=== PATIENT | male | born 1945 | race Caucasian/White ===

== ENCOUNTER 2022-02-24 14:09 | Emergency (ER) | payer MEDICARE ==
[2022-02-24 15:30] VITALS: BP 166/112
== END 2022-02-24 15:30 | disposition home or self-care (01) ==
LOC: ED 14:09
DX: S01.01XA Laceration without foreign body of scalp, initial encounter (principal); Z28.310 Unvaccinated for COVID-19; W08.XXXA Fall from other furniture, initial encounter; W22.8XXA Striking against or struck by other objects, initial encounter; Y92.219 Unspecified school as the place of occurrence of the external cause

== ENCOUNTER → 2022-03-06 | Outpatient (CLI) | payer MEDICARE | LOC: AMSURD 14:49 | DX: Z48.02 Encounter for removal of sutures (principal) ==